=== PATIENT | female | born 1990 | race Caucasian/White ===

== ENCOUNTER 2016-06-18 02:15 | Emergency (ER) | payer OTHER ==
[2016-06-18 05:15] LABS: HEMOGLOBIN 14.3 gm/dl (12.3-15.3); RED BLOOD COUNT 4.66 M/UL (4.00-5.10); WHITE BLOOD COUNT 10.7 K/UL (4.5-11.0)
[2016-06-18 05:30] LABS: BUN/CREATININE RATIO 18 (0-10)
== END 2016-06-18 07:23 | disposition home or self-care (01) ==
LOC: ER1 02:15
PROVIDERS: Family Medicine
DX: R11.2 Nausea with vomiting, unspecified (principal); R10.10 Upper abdominal pain, unspecified; E11.9 Type 2 diabetes mellitus without complications; Z79.4 Long term (current) use of insulin
CPT/HCPCS: 80053; 81001; 83690; 84703; 85025; 87086; 96374; 99284; J2405; J7030

== ENCOUNTER 2016-08-04 01:48 | Emergency (ER) | payer OTHER ==
[2016-08-04 03:19] LABS: HEMOGLOBIN 13.6 gm/dl (12.3-15.3); RED BLOOD COUNT 4.5 M/UL (4.00-5.10); WHITE BLOOD COUNT 10.1 K/UL (4.5-11.0)
[2016-08-04 03:51] LABS: BUN/CREATININE RATIO 27 (0-10)
== END 2016-08-04 04:15 | disposition home or self-care (01) ==
LOC: ER1 01:48
PROVIDERS: Physician Assistant
DX: R10.817 Generalized abdominal tenderness (principal); R10.9 Unspecified abdominal pain; E10.9 Type 1 diabetes mellitus without complications; Z79.4 Long term (current) use of insulin
CPT/HCPCS: 36415; 80053; 81001; 83690; 84703; 85025; 87086; 96361; 96374; 99284; J2765

== ENCOUNTER 2016-08-05 03:20 | Emergency (ER) | payer OTHER | END 2016-08-05 04:00 | disposition home or self-care (01) | LOC: ER1 03:20 | DX: S30.861A Insect bite (nonvenomous) of abdominal wall, initial encounter (principal); W57.XXXA Bitten or stung by nonvenomous insect and other nonvenomous arthropods, initial encounter; E11.9 Type 2 diabetes mellitus without complications | CPT/HCPCS: 99282 ==

== ENCOUNTER 2020-02-24 15:32 | Emergency (ER) | payer OTHER ==
[~2020-02-24 15:32] MED LIST: ONDANSETRON ODT4 MG PO
[2020-02-24 18:39] LABS: HEMOGLOBIN 14.2 gm/dl (12.3-15.3); RED BLOOD COUNT 4.5 M/UL (4.00-5.10); WHITE BLOOD COUNT 6.7 K/UL (4.5-11.0)
[2020-02-24 19:03] LABS: BUN/CREATININE RATIO 11 (0-10)
== END 2020-02-24 21:48 | disposition home or self-care (01) ==
LOC: ER1 15:32
PROVIDERS: Emergency Medicine
DX: R10.9 Unspecified abdominal pain (principal); R11.2 Nausea with vomiting, unspecified; I10 Essential (primary) hypertension; E11.9 Type 2 diabetes mellitus without complications; Z98.890 Other specified postprocedural states; Z98.84 Bariatric surgery status
CPT/HCPCS: 80053; 81001; 83605; 83690; 84703; 85025; 96374; 96375; 99284; J2270; J2405; J7030; Q9967

== ENCOUNTER 2020-02-29 17:55 | Emergency (ER) | payer OTHER ==
[2020-02-29 19:29] LABS: HEMOGLOBIN 14.3 gm/dl (12.3-15.3); RED BLOOD COUNT 4.54 M/UL (4.00-5.10); WHITE BLOOD COUNT 6.8 K/UL (4.5-11.0)
[2020-02-29 19:40] LABS: BUN/CREATININE RATIO 13 (0-10)
[2020-02-29] MEDS ORDERED: CARAFATE1 GM/10 ML PO (21:09)
[2020-02-29] MEDS ORDERED: PROTONIX40 MG PO (21:09)
== END 2020-02-29 21:30 | disposition home or self-care (01) ==
LOC: ER1 17:55
PROVIDERS: Preventive Medicine Occupational Medicine
DX: K29.00 Acute gastritis without bleeding (principal); I10 Essential (primary) hypertension; Z88.8 Allergy status to other drugs, medicaments and biological substances
CPT/HCPCS: 80053; 81001; 83690; 85025; 85652; 86140; 87086; 96374; 96375; 99284; C9113; Q9967

== ENCOUNTER 2020-03-02 10:49 | Emergency (ER) | payer OTHER ==
[~2020-03-02 10:49] MED LIST changes: +CARAFATE1 GM/10 ML PO; +PROTONIX40 MG PO
[2020-03-02 12:16] LABS: RED BLOOD COUNT 4.45 M/UL (4.00-5.10); WHITE BLOOD COUNT 5.9 K/UL (4.5-11.0)
[2020-03-02 12:35] LABS: BUN/CREATININE RATIO 9 (0-10)
== END 2020-03-02 15:24 | disposition home or self-care (01) ==
LOC: ER1 10:49
PROVIDERS: Emergency Medicine
DX: I88.0 Nonspecific mesenteric lymphadenitis (principal)
CPT/HCPCS: 80053; 81001; 82550; 82553; 83690; 84484; 85025; 93005; 99284; J7030; Q9967

== ENCOUNTER → 2020-06-05 | Outpatient (CLI) | payer OTHER ==
[2020-06-05 13:00] LABS: HEMOGLOBIN 15.2 gm/dl (12.3-15.3); RED BLOOD COUNT 4.56 M/UL (4.00-5.10); WHITE BLOOD COUNT 8.6 K/UL (4.5-11.0)
[2020-06-05 13:42] LABS: BUN/CREATININE RATIO 17 (0-10)
[2020-06-06 08:14] LABS: VITAMIN D, 25-HYDROXY 29.6 ng/mL (30.0-100.0)
== END ==
LOC: LAB 11:58
PROVIDERS: Nurse Practitioner Family
DX: R53.83 Other fatigue (principal); D89.9 Disorder involving the immune mechanism, unspecified; M25.50 Pain in unspecified joint; R76.8 Other specified abnormal immunological findings in serum
CPT/HCPCS: 36415; 80053; 82550; 83520; 85025; 85652; 86140; 86200

== ENCOUNTER → 2020-06-07 | Outpatient (CLI) | payer OTHER | LOC: MRI 12:14 | DX: S83.241A Other tear of medial meniscus, current injury, right knee, initial encounter (principal); S83.194A Other dislocation of right knee, initial encounter | CPT/HCPCS: 73721 ==

== ENCOUNTER 2021-06-19 23:39 | Emergency (ER) | payer OTHER | END 2021-06-20 02:56 | disposition home or self-care (01) | LOC: ER1 23:39 | DX: G43.909 Migraine, unspecified, not intractable, without status migrainosus (principal); E11.9 Type 2 diabetes mellitus without complications; Z79.01 Long term (current) use of anticoagulants; Z79.4 Long term (current) use of insulin; Z88.1 Allergy status to other antibiotic agents; Z88.8 Allergy status to other drugs, medicaments and biological substances; Z86.711 Personal history of pulmonary embolism; Z86.718 Personal history of other venous thrombosis and embolism | CPT/HCPCS: 96374; 96375; 99283; J0780; J1200 ==

== ENCOUNTER 2021-07-20 00:04 | Emergency (ER) | payer OTHER | END 2021-07-20 03:20 | disposition home or self-care (01) | LOC: ER1 00:04 | DX: M79.81 Nontraumatic hematoma of soft tissue (principal); E11.9 Type 2 diabetes mellitus without complications; Z79.01 Long term (current) use of anticoagulants | CPT/HCPCS: 99283 ==